=== PATIENT | male | born 1965 | race Caucasian/White ===

== ENCOUNTER 2021-01-14 12:02 | Inpatient (IN) | payer OTHER ==
[~2021-01-14] VITALS: Ht 190.5 cm; Wt 122.0 kg
[2021-01-14 12:49] LABS: HEMOGLOBIN 12.4 gm/dl (14.0-17.5); RED BLOOD COUNT 4.38 M/UL (4.20-5.50); WHITE BLOOD COUNT 10.2 K/UL (4.5-11.0)
[2021-01-14] MEDS ORDERED: TESSALON PERLE100 MG PO (14:58)
[2021-01-14] MEDS ORDERED: AMLODIPINE BESY10 MG PO (14:59)
[2021-01-14] MEDS ORDERED: OMNICEF 300 MG300 MG PO (14:59)
[2021-01-14] MEDS ORDERED: DIABETA 5 MG TAB5 MG PO (15:00)
[2021-01-14] MEDS ORDERED: HYDROCODON-ACE1 EAC2 PO (15:00)
[2021-01-14] MEDS ORDERED: LOSARTAN-HCTZ1 EACH PO (15:00)
[2021-01-14] MEDS ORDERED: ACTOS TAB 15MG15 MG PO (15:01)
[2021-01-14] MEDS ORDERED: PRAVASTATIN SOD20 MG PO (15:01)
[2021-01-14] MEDS ORDERED: ASPIRIN EC81 MG PO (15:26)
[2021-01-14] MEDS ORDERED: LANTUS100 UNIT/1 SQ (15:26)
[2021-01-14] MEDS ORDERED: MUCINEX600 MG PO (15:27)
[2021-01-15 04:40] LABS: HEMOGLOBIN 12.9 gm/dl (14.0-17.5); RED BLOOD COUNT 4.54 M/UL (4.20-5.50); WHITE BLOOD COUNT 8.7 K/UL (4.5-11.0)
[2021-01-15 05:21] LABS: BUN/CREATININE RATIO 31 (0-10)
[2021-01-16 05:04] LABS: BUN/CREATININE RATIO 33 (0-10)
[2021-01-16 05:20] LABS: HEMOGLOBIN 11.5 gm/dl (14.0-17.5); WHITE BLOOD COUNT 8.3 K/UL (4.5-11.0)
[2021-01-16 05:22] LABS: RED BLOOD COUNT 4.03 M/UL (4.20-5.50)
[2021-01-16 12:14] LABS: HBSAG SCREEN Negative (Negative); HEP A AB, IGM Negative (Negative); HEP B CORE AB, IGM Negative (Negative); HEP C VIRUS AB 0.2 (0.0-0.9)
[2021-01-16] MEDS ORDERED: LANTUS INS100 UTS/M1 SC (15:12)
[2021-01-16] MEDS ORDERED: LOPRESSOR 25 MG25 MG PO (15:12)
[2021-01-16] MEDS ORDERED: DECADRON6 MG PO (15:12)
[2021-01-16] MEDS ORDERED: IPRAT-ALBUT 0.5-3 ML NEB (15:12)
[2021-01-16] MEDS ORDERED: LASIX40 MG PO (16:00)
--- NOTE | 2021-01-16 19:16 | NUR ---
PATIENT HAS 02 AT HOME FROM A FAMILY MEMBER. STATES THAT HE USES IT OFTEN, BUT DR RANDHAWA WANTS HIM TO BE SET UP FOR HOME OXYGEN FOR HIMSELF. PATIENT STATES TAHT HE WANTS TO GO HOME AND DOESN'T WANT TO WAIT ON DME TO OPEN TOMORROW. PATIENT STATES THAT HE WOULD SIGN AMA PAPERS IF HE NEEDS TO. RN CALLEDD DR RANDHAWA AND EXPLAINED TO HIM ABOUT THE ORDER NOT BEING PUT IN FOR HOME OXYGEN FOR CASE MANAGEMENT TO SET UP TODAY. MD SAYS ITS OK FOR PATIENT TO BE DISCHARGED PROPERLY AND ALLOW CASE MANAGEMENT TO SET UP HOME HEALTH TOMORROW FOR PATIENT SINCE HE HAS O2 TO USE TONIGHT AT HOME.
== END 2021-01-16 19:40 | disposition home or self-care (01) | DRG 177 ==
LOC: ER1 12:02 → CDU 14:47 → M/S 01-15 17:40
PROVIDERS: Physician Assistant; Physician Assistant Medical; ADMIT Internal Medicine
PROC: XW033E5 Introduction of Remdesivir Anti-infective into Peripheral Vein, Percutaneous Approach, New Technology Group 5 (ICD-10-PCS; principal; 2021-01-14)
PROC: 8E0ZXY6 Isolation (ICD-10-PCS; 2021-01-14)
PROC: B24BZZ4 Ultrasonography of Heart with Aorta, Transesophageal (ICD-10-PCS; 2021-01-15)
PROC: 3E0333Z Introduction of Anti-inflammatory into Peripheral Vein, Percutaneous Approach (ICD-10-PCS; 2021-01-16)
DX: U07.1 COVID-19 (principal); J96.01 Acute respiratory failure with hypoxia; I50.33 Acute on chronic diastolic (congestive) heart failure; I21.A1 Myocardial infarction type 2; J12.82 Pneumonia due to coronavirus disease 2019; N17.9 Acute kidney failure, unspecified; I11.0 Hypertensive heart disease with heart failure; I07.1 Rheumatic tricuspid insufficiency; I27.20 Pulmonary hypertension, unspecified; E78.5 Hyperlipidemia, unspecified; E11.9 Type 2 diabetes mellitus without complications; F17.210 Nicotine dependence, cigarettes, uncomplicated; E66.9 Obesity, unspecified; E88.09 Other disorders of plasma-protein metabolism, not elsewhere classified; I25.10 Atherosclerotic heart disease of native coronary artery without angina pectoris; Z95.1 Presence of aortocoronary bypass graft; Z82.49 Family history of ischemic heart disease and other diseases of the circulatory system; Z99.81 Dependence on supplemental oxygen; Z83.3 Family history of diabetes mellitus; Z88.0 Allergy status to penicillin; Z79.01 Long term (current) use of anticoagulants; Z79.82 Long term (current) use of aspirin; Z68.36 Body mass index [BMI] 36.0-36.9, adult
CPT/HCPCS: ECHO; 36415; 36600; 71045; 80048; 80053; 80074; 82550; 82553; 82803; 82962; 83036; 83735; 83874; 83880; 84484; 85025; 85027; 85730; 93005; 93306; 94640; 94664; 94760; 99285; J1100; J1644; J1650; J1940; J7030; J7070; U0002